=== PATIENT | male | born 1965 | race African-American/Black ===

== ENCOUNTER 2017-05-10 12:04 | Inpatient (IN) | payer MEDICAID ==
[~2017-05-10] VITALS: Ht 175.3 cm; Wt 102.1 kg
[2017-05-10] MEDS ORDERED: METF500T4 PO (12:08)
[2017-05-10] MEDS ORDERED: LIDOCAINE HCL/EPINEPHRINE 1%-EPI 1:100,000 30 ML VIAL INFIL ONE (19:45)
[2017-05-10] MEDS ORDERED: SODIUM CHLORIDE 0.9% 1,000 ML IV SCH (19:57)
[2017-05-10] MEDS ORDERED: CLINDAMYCIN 600 MG in DEXTROSE 5% WATER 50 ML IV ONE (20:00)
[2017-05-10] MEDS ORDERED: PIPERACILLIN/TAZ 3.375G PREMIX 50 ML IV ONE (20:00)
[2017-05-10 20:04] LABS: BASOPHILS % 1.2 % (0.0-2.0); EOSINOPHILS % 0.3 % (0.0-5.0); HEMATOCRIT. 43.1 % (42.0-52.0); HEMOGLOBIN. 13.8 g/dL (14.0-18.0); LYMPHOCYTES % 15.4 % (20.0-50.0); MEAN CORPUSCULAR HEMOGLOBIN 22.7 pg (28.0-32.0); MEAN CORPUSCULAR VOLUME 70.8 fL (80.0-94.0); MEAN PLATELET VOLUME 7.8 fl (7.4-10.4); MONOCYTES % 9.2 % (2.0-8.0); NEUTROPHILS % 73.9 % (40.0-76.0); PLATELET 204 x1000/uL (130-400); RED BLOOD CELL COUNT 6.09 mill/uL (4.7-6.1)
[2017-05-10 20:08] LABS: CHLORIDE 102 mEq/L (98-107)
[2017-05-10 20:13] LABS: CARBON DIOXIDE 31 mEq/L (21-32)
[2017-05-10] MEDS ORDERED: KETOROLAC 30MG/ML VIAL IV ONE (20:30)
[2017-05-10] MEDS ORDERED: ONDANSETRON HCL 4MG/2ML VIAL IV ONE (20:30)
[2017-05-10] MEDS ORDERED: MORPHINE SULFATE 4 MG/ML CPJ (NOT FOR IM USE) IV ONE (20:30)
[2017-05-10] MEDS ORDERED: SODIUM CHLORIDE 0.9% 500 ML IV ONE (21:04)
[2017-05-10] MEDS ORDERED: CLONIDINE 0.1MG TABLET PO PRN (21:15)
[2017-05-10] MEDS ORDERED: PIPERACILLIN/TAZ 3.375G PREMIX 50 ML IV SCH (21:15)
[2017-05-10] MEDS ORDERED: ONDANSETRON HCL 4MG/2ML VIAL IV PRN (21:15)
[2017-05-10] MEDS ORDERED: IPRATROPIUM/ALBUTEROL 0.5-3(2.5)MG/3ML NEB INH PRN (21:15)
[2017-05-10] MEDS ORDERED: MAGNESIUM/ALUMINUM HYDROXIDE/SIMETHICONE 30ML UDC PO PRN (21:15)
[2017-05-10] MEDS ORDERED: ACETAMINOPHEN 325MG TABLET PO PRN (21:15)
[2017-05-11 00:53] LABS: CHLORIDE 105 mEq/L (98-107)
[2017-05-11 00:59] LABS: CARBON DIOXIDE 28 mEq/L (21-32)
[2017-05-11 04:54] LABS: BASOPHILS % 0.6 % (0.0-2.0); EOSINOPHILS % 1.4 % (0.0-5.0); HEMATOCRIT. 39.2 % (42.0-52.0); HEMOGLOBIN. 12.6 g/dL (14.0-18.0); LYMPHOCYTES % 18.6 % (20.0-50.0); MEAN CORPUSCULAR HEMOGLOBIN 22.7 pg (28.0-32.0); MEAN CORPUSCULAR VOLUME 70.8 fL (80.0-94.0); MEAN PLATELET VOLUME 8.1 fl (7.4-10.4); MONOCYTES % 14.7 % (2.0-8.0); NEUTROPHILS % 64.7 % (40.0-76.0); PLATELET 183 x1000/uL (130-400); RED BLOOD CELL COUNT 5.53 mill/uL (4.7-6.1); RED CELL DISTRIBUTION WIDTH 14.9 % (11.6-14.6)
[2017-05-11] MEDS ORDERED: VANCOMYCIN 1,500 MG in DEXT 5% WATER 250 ML IV SCH (07:30)
[2017-05-11] MEDS: HYDROCODONE/ACETAMINOPHEN 5/325MG TABLET PO PRN ×2 (08:41→20:33)
[2017-05-11 12:00] VITALS: BP 120/82
[2017-05-11] MEDS: INSULIN LISPRO 100 UNITS/ML SUBCUT SCH ×3 (12:50→21:05)
[2017-05-11] MEDS ORDERED: DEXTROSE 50% WATER 50ML SYRINGE IV PRN (13:00)
[2017-05-11] MEDS: ENOXAPARIN 40MG/0.4ML SYR SUBCUT SCH ×2 (13:05→13:08)
[2017-05-11] MEDS: PIPERACILLIN/TAZ 3.375G PREMIX 50 ML IV SCH (15:32)
[2017-05-11 16:00] VITALS: BP 120/80
[2017-05-11] MEDS: BLOOD SUGAR DIAGNOSTIC STRIP TEST SCH ×2 (17:20→20:35)
[2017-05-11 20:00] VITALS: BP 116/72
[2017-05-11] MEDS ORDERED: INFLUENZA VIRUS VACCINE 0.5ML SYR IM ONE (20:00)
[2017-05-11] MEDS: VANCOMYCIN 1250MG in DEXTROSE 5% WATER 250ML IV SCH (20:32)
[2017-05-12] VITALS: BP 116/60
[2017-05-12] MEDS: PIPERACILLIN/TAZ 3.375G PREMIX 50 ML IV SCH ×3 (00:15→13:41)
[2017-05-12 04:00] VITALS: BP 123/79
[2017-05-12] MEDS: BLOOD SUGAR DIAGNOSTIC STRIP TEST SCH ×3 (06:13→16:35)
[2017-05-12 08:00] VITALS: BP 121/78
[2017-05-12] MEDS: VANCOMYCIN 1250MG in DEXTROSE 5% WATER 250ML IV SCH (08:00)
[2017-05-12] MEDS: INSULIN LISPRO 100 UNITS/ML SUBCUT SCH ×3 (08:00→16:35)
[2017-05-12] MEDS: HYDROCODONE/ACETAMINOPHEN 5/325MG TABLET PO PRN (11:09)
[2017-05-12] MEDS: ENOXAPARIN 40MG/0.4ML SYR SUBCUT SCH (11:09)
[2017-05-12] MEDS ORDERED: HYDR-523 PO (14:27)
[2017-05-12] MEDS ORDERED: CEPH-569 PO (14:27)
[2017-05-12] MEDS ORDERED: METFORMIN HCL 500MG TABLET PO SCH (17:00)
[2017-05-12 17:35] VITALS: BP 121/78
== END 2017-05-12 18:45 | disposition home or self-care (01) | DRG 383 ==
LOC: ER 12:34 → EDBEDREQ 20:16 → ENRESERV 05-11 10:25 → EDBEDREQ 05-11 11:28 → 6EST 05-11 11:30
PROVIDERS: ADMIT Internal Medicine; ATTEND Internal Medicine
PROC: 0H98XZZ Drainage of Buttock Skin, External Approach (ICD-10-PCS; principal; 2017-05-11)
DX: L03.116 Cellulitis of left lower limb (principal); L02.31 Cutaneous abscess of buttock; T63.301A Toxic effect of unspecified spider venom, accidental (unintentional), initial encounter; E11.9 Type 2 diabetes mellitus without complications; M79.89 Other specified soft tissue disorders; Y92.89 Other specified places as the place of occurrence of the external cause
CPT/HCPCS: 10060; 36415; 80048; 80061; 82962; 85025; 87040; 90686; 93005; 93970; 96361; 96365; 96366; 96367; 96375; 99285; J1650; J1815; J1885; J2270; J2405; J2543; J3370; J3490; J7030; J7050; J7060